=== PATIENT | female | born 1960 | race Caucasian/White ===

== ENCOUNTER 2022-06-28 13:16 | Outpatient (CLI) | payer BC | END 2022-06-28 13:17 | disposition home or self-care (01) | LOC: BICMAMMO 13:16 | PROVIDERS: ATTEND Registered Nurse | DX: N64.4 Mastodynia (principal) | CPT/HCPCS: 77066; G0279 ==

== ENCOUNTER 2023-08-08 20:59 | Observation (INO) | payer BC ==
[2023-08-09] MEDS ORDERED: Senokot S 8.6-50 MG TAB PO PRN (00:16)
[2023-08-09] MEDS ORDERED: Acetaminophen 325 MG TAB PO PRN (00:16)
[2023-08-09] MEDS: Dexamethasone 4 mg/ml Vial SLOW IVP SCH (01:39)
[2023-08-09] MEDS: clonazePAM 0.5 MG TAB PO PRN (01:39)
[2023-08-09] MEDS: tiZANidine HCl 4 MG TAB PO SCH (02:17)
[2023-08-09 05:10] LABS: #Eosinphils 0.1 thou/uL (0.0-0.7); #Monocytes 0.3 thou/uL (0.11-0.59); #Neutrophils 6.2 thou/uL (1.40-6.50); %Basophils 0.5 % (0.0-1.0); %Eosinophils 1.2 % (0.0-10.0); %Lymphocytes 13.2 % (21.0-51.0); %Monocytes 4.2 % (0.0-10.0); %Neutrophils 80.4 % (42.0-75.0); Hematocrit 42.6 % (36.0-47.0); Hemoglobin 13.5 g/dL (12.0-16.0); Mean Corpuscular HGB CONC 31.7 g/dL (32.0-36.0); Mean Corpuscular Hemoglobin 28.7 pg (27.0-31.0); Mean Corpuscular Volume 90.4 fl (78.0-98.0); Mean Platelet Volume 11.5 fL (7.4-10.4); Platelet Count 363 10x3/uL (130-400); RBC Distribution Width 14.1 % (11.5-14.5); Red Blood Cell (RBC) Count 4.71 mill/uL (4.20-5.40); White Blood Cell (WBC) Count 7.7 10x3/uL (4.8-10.8)
[2023-08-09 05:39] LABS: ALT (SGPT) 12 U/L (8-55); AST (SGOT) 17 U/L (5-34); Alkaline Phosphatase 76 U/L (40-110); Anion Gap 18 mmol/L (10-20); BUN (Urea Nitrogen) 19 mg/dL (9.8-20.1); Bilirubin, Total 0.3 mg/dL (0.2-1.2); Calc. Creatinine Clearance 54 mL/min (70-130); Calcium 9.9 mg/dL (7.8-10.44); Carbon Dioxide 18 mmol/L (23-31); Chloride 106 mmol/L (98-107); Estimated GFR 36; Glucose 139 mg/dL (80-115); Potassium 4.2 mmol/L (3.5-5.1); Sodium 138 mmol/L (136-145)
[2023-08-09] MEDS ORDERED: Cyclobenzaprine 10 MG TAB PO PRN (08:47)
[2023-08-09] MEDS ORDERED: Famotidine 20 MG TAB PO SCH (09:00)
[2023-08-09] MEDS: Gabapentin 300 MG CAP PO SCH (09:32)
[2023-08-09] MEDS: Ondansetron ODT 4 MG TAB PO PRN (09:32)
[2023-08-09] MEDS: Amlodipine 10 MG TAB PO SCH (09:33)
[2023-08-09] MEDS: Citalopram 20 MG TAB PO SCH (09:33)
[2023-08-09] MEDS: Spironolactone 25 MG TAB PO SCH (09:33)
[2023-08-09] MEDS: Clopidogrel Bisulfate 75 MG TAB PO SCH (09:34)
[2023-08-09] MEDS: Losartan 25 MG TAB PO SCH (09:35)
[2023-08-09] MEDS ORDERED: Ondansetron PF 4 MG/2 ML Vial IVP PRN (11:03)
[2023-08-09] MEDS ORDERED: Ondansetron ODT 4 MG TAB PO PRN (11:03)
[2023-08-09] MEDS: fentaNYL 50 mcg/mL 1 mL Vial SLOW IVP SCH ×2 (12:22→20:29)
[2023-08-09] MEDS: Ondansetron PF 4 MG/2 ML Vial IVP PRN (12:22)
[2023-08-09] MEDS: Sodium Chloride 0.9% 1,000 ML IV SCH (14:21)
[2023-08-09] MEDS: HYDROcodone/Acetaminophen 5/325 mg Tablet PO PRN (14:52)
[2023-08-09] MEDS: Sucralfate 1 GM TAB PO SCH (17:55)
[2023-08-09] MEDS: Calcium Carbonate 600 MG + Vit D TAB PO SCH (18:20)
[2023-08-09] MEDS: Senokot S 8.6-50 MG TAB PO SCH (20:29)
[2023-08-09] MEDS: cloNIDine 0.1 MG TAB PO PRN (20:30)
[2023-08-09] MEDS: Lidocaine 4% Patch TD SCH (20:30)
[2023-08-09] MEDS: tiZANidine HCl 4 MG TAB PO PRN (20:30)
[2023-08-09] MEDS: Cyanocobalamin (Vitamin B-12) 1,000 MCG TAB PO SCH (20:55)
[2023-08-10] MEDS: Sucralfate 1 GM TAB PO SCH (04:11)
[2023-08-10 04:23] LABS: #Eosinphils 0.1 thou/uL (0.0-0.7); #Monocytes 0.8 thou/uL (0.11-0.59); #Neutrophils 4.8 thou/uL (1.40-6.50); %Basophils 0.4 % (0.0-1.0); %Eosinophils 0.9 % (0.0-10.0); %Lymphocytes 28.3 % (21.0-51.0); %Monocytes 9.8 % (0.0-10.0); %Neutrophils 60.3 % (42.0-75.0); Hematocrit 39.1 % (36.0-47.0); Hemoglobin 12.6 g/dL (12.0-16.0); Mean Corpuscular HGB CONC 32.2 g/dL (32.0-36.0); Mean Corpuscular Volume 90.1 fl (78.0-98.0); Mean Platelet Volume 10.1 fL (7.4-10.4); Platelet Count 269 10x3/uL (130-400); RBC Distribution Width 14.1 % (11.5-14.5); Red Blood Cell (RBC) Count 4.34 mill/uL (4.20-5.40); White Blood Cell (WBC) Count 7.9 10x3/uL (4.8-10.8)
[2023-08-10 04:52] LABS: Anion Gap 12 mmol/L (10-20); BUN (Urea Nitrogen) 16 mg/dL (9.8-20.1); Calc. Creatinine Clearance 86 mL/min (70-130); Calcium 9.4 mg/dL (7.8-10.44); Carbon Dioxide 20 mmol/L (23-31); Chloride 109 mmol/L (98-107); Estimated GFR 63; Glucose 106 mg/dL (80-115); Magnesium 2.2 mg/dL (1.6-2.6); Potassium 3.4 mmol/L (3.5-5.1); Sodium 138 mmol/L (136-145)
[2023-08-10] MEDS ORDERED: Acetaminophen 500 MG TAB PO PRN (07:45)
[2023-08-10 07:59] VITALS: TEMP 98.2
[2023-08-10] MEDS: Promethazine 25 MG TAB PO PRN (08:29)
[2023-08-10] MEDS: oxyCODONE 5 MG TAB PO PRN (08:54)
[2023-08-10] MEDS: Transdermal Patch Removal TOP SCH (08:57)
[2023-08-10] MEDS ORDERED: Lidocaine 4% Patch TD SCH (09:00)
[2023-08-10] MEDS: Potassium Chloride 20 MEQ TAB PO SCH (11:46)
[2023-08-10 12:41] VITALS: BP 102/70
[2023-08-10] MEDS: Acetaminophen 500 MG TAB PO SCH (16:23)
[2023-08-12] MEDS ORDERED: FLU VACC QS2023-24(6MOS UP)/PF 60 MCG/0.5 ML SYRINGE IM ONE (09:00)
== END 2023-08-10 17:25 | disposition home or self-care (01) ==
LOC: 2SE 20:59
PROVIDERS: ADMIT Student in an Organized Health Care Education/Training Program; ATTEND Internal Medicine
DX: M47.816 Spondylosis without myelopathy or radiculopathy, lumbar region (principal); M48.061 Spinal stenosis, lumbar region without neurogenic claudication; M48.07 Spinal stenosis, lumbosacral region; M70.62 Trochanteric bursitis, left hip; M70.61 Trochanteric bursitis, right hip; F41.9 Anxiety disorder, unspecified; I10 Essential (primary) hypertension; F32.A Depression, unspecified; G89.29 Other chronic pain; E78.5 Hyperlipidemia, unspecified; N17.9 Acute kidney failure, unspecified; I12.9 Hypertensive chronic kidney disease with stage 1 through stage 4 chronic kidney disease, or unspecified chronic kidney disease; N18.2 Chronic kidney disease, stage 2 (mild); E66.9 Obesity, unspecified; Z68.38 Body mass index [BMI] 38.0-38.9, adult; Z88.5 Allergy status to narcotic agent; Z88.8 Allergy status to other drugs, medicaments and biological substances; Z90.710 Acquired absence of both cervix and uterus; Z79.82 Long term (current) use of aspirin; Z79.899 Other long term (current) drug therapy
CPT/HCPCS: 36415; 72148; 80048; 80053; 83735; 85025; 96374; 96375; 96376; G0378; J1100; J2405; J3010; J7050; Q0162; Q0169

== ENCOUNTER 2024-05-15 16:26 | Inpatient (IN) | payer BC, SELFPAY ==
[~2024-05-15 16:26] MED LIST: Iopamidol-370 76% 500 ML MDV (1 ML CHARGE) ONE
[2024-05-15] MEDS ORDERED: Ondansetron PF 4 MG/2 ML Vial ONE ×2 (17:13→19:42)
[2024-05-15] MEDS ORDERED: Morphine 2 MG/ML VIAL ONE ×2 (17:13→19:42)
[2024-05-15 17:32] LABS: #Basophils 0.04 10x3/uL (0.0-0.2); %Basophils 0.7 % (0.0-1.0); %Eosinophils 2.7 % (0.0-10.0); %Lymphocytes 28.6 % (21.0-51.0); %Monocytes 8.5 % (0.0-10.0); %Neutrophils 59.3 % (42.0-75.0); Hematocrit 41.1 % (36.0-47.0); Hemoglobin 13.1 g/dL (12.0-16.0); Mean Corpuscular HGB CONC 31.9 g/dL (32.0-36.0); Mean Corpuscular Hemoglobin 28.2 pg (27.0-31.0); Mean Corpuscular Volume 88.6 fL (78.0-98.0); Mean Platelet Volume 10.3 fL (7.4-10.4); Platelet Count 258 10x3/uL (130-400); RBC Distribution Width 14.4 % (11.5-14.5); Red Blood Cell (RBC) Count 4.64 mill/uL (4.20-5.40)
[2024-05-15 17:40] LABS: ALT (SGPT) 13 U/L (8-55); AST (SGOT) 16 U/L (5-34); Albumin 3.7 g/dL (3.4-4.8); Alkaline Phosphatase 60 U/L (40-110); Anion Gap 13 mmol/L (10-20); BUN (Urea Nitrogen) 12 mg/dL (9.8-20.1); Bilirubin, Total 0.3 mg/dL (0.2-1.2); Calc. Creatinine Clearance 0 mL/min (70-130); Calcium 9.4 mg/dL (7.8-10.44); Carbon Dioxide 21 mmol/L (23-31); Chloride 111 mmol/L (98-107); Estimated GFR 90; Globulin 2.8 g/dL (2.4-3.5); Glucose 93 mg/dL (80-115); Potassium 3.9 mmol/L (3.5-5.1); Protein, Total 6.5 g/dL (5.8-8.1); Sodium 141 mmol/L (136-145)
[2024-05-15 17:44] LABS: Troponin I Less than 0.010 ng/mL (< 0.028)
[2024-05-15] MEDS ORDERED: Acetaminophen 325 MG TAB PO PRN (18:41)
[2024-05-15] MEDS ORDERED: Calcium Carbonate 500 MG ChewTAB PO PRN (18:41)
[2024-05-15] MEDS ORDERED: Senokot S 8.6-50 MG TAB PO PRN (18:41)
[2024-05-15] MEDS ORDERED: Acetaminophen 500 MG TAB ONE (19:40)
[2024-05-15 21:24] LABS: Troponin I Less than 0.010 ng/mL (< 0.028)
[2024-05-15] MEDS: Gabapentin 300 MG CAP PO SCH (22:23)
[2024-05-15] MEDS: clonazePAM 1 MG TAB PO SCH (22:24)
[2024-05-15 22:31] VITALS: BMI 35.6
[2024-05-16 01:46] LABS: Troponin I Less than 0.010 ng/mL (< 0.028)
[2024-05-16 04:49] LABS: #Basophils 0.05 10x3/uL (0.0-0.2); %Basophils 1.1 % (0.0-1.0); %Eosinophils 5.2 % (0.0-10.0); %Monocytes 12.2 % (0.0-10.0); %Neutrophils 39.5 % (42.0-75.0); Hematocrit 40.2 % (36.0-47.0); Hemoglobin 12.5 g/dL (12.0-16.0); Mean Corpuscular HGB CONC 31.1 g/dL (32.0-36.0); Mean Corpuscular Hemoglobin 28.3 pg (27.0-31.0); Platelet Count 258 10x3/uL (130-400); RBC Distribution Width 14.6 % (11.5-14.5); Red Blood Cell (RBC) Count 4.42 mill/uL (4.20-5.40)
[2024-05-16] MEDS: Morphine 2 MG/ML VIAL SLOW IVP PRN (04:50)
[2024-05-16 05:06] LABS: Hemoglobin A1c 5.3 % (4.0-6.0)
[2024-05-16 05:07] LABS: ALT (SGPT) 12 U/L (8-55); AST (SGOT) 14 U/L (5-34); Albumin 3.6 g/dL (3.4-4.8); Alkaline Phosphatase 58 U/L (40-110); Anion Gap 11 mmol/L (10-20); BUN (Urea Nitrogen) 14 mg/dL (9.8-20.1); Bilirubin, Total 0.2 mg/dL (0.2-1.2); Calc. Creatinine Clearance 88 mL/min (70-130); Calcium 9.4 mg/dL (7.8-10.44); Carbon Dioxide 28 mmol/L (23-31); Cardiac Risk 3.1 (Less than 4.5); Chloride 107 mmol/L (98-107); Cholesterol 154 mg/dl (< 200 Desired); Estimated GFR 68; Globulin 2.6 g/dL (2.4-3.5); Glucose 100 mg/dL (80-115); HDL Cholesterol 50 mg/dL (>60 Neg Risk); LDL Cholesterol, Calculated 87 mg/dL; Potassium 3.7 mmol/L (3.5-5.1); Protein, Total 6.2 g/dL (5.8-8.1); Sodium 142 mmol/L (136-145); Triglycerides 86 mg/dL (Less than 150)
[2024-05-16] MEDS: Enoxaparin 40 MG (0.4 mL) SYRINGE SC SCH (09:10)
[2024-05-16] MEDS: clonazePAM 0.5 MG TAB PO SCH (09:10)
[2024-05-16] MEDS: Clopidogrel Bisulfate 75 MG TAB PO SCH (09:10)
[2024-05-16] MEDS: Citalopram 20 MG TAB PO SCH (09:10)
[2024-05-16] MEDS: Aspirin Chewable 81 MG TAB PO SCH (09:10)
[2024-05-16] MEDS: Ondansetron PF 4 MG/2 ML Vial IVP PRN (09:18)
[2024-05-16] MEDS: HYDROcodone/Acetaminophen 7.5/325 mg Tablet PO PRN (10:20)
[2024-05-16] MEDS: Metoclopramide HCl 10 MG (2 mL) VIAL IVP PRN (10:26)
[2024-05-16] MEDS ORDERED: Regadenoson 0.4 MG/5 ML SYRINGE ONE (10:44)
[2024-05-16] MEDS: Amlodipine 10 MG TAB PO SCH (13:45)
[2024-05-16] MEDS: Spironolactone 25 MG TAB PO SCH (13:46)
[2024-05-16] MEDS: Losartan 25 MG TAB PO SCH (13:46)
[2024-05-16] MEDS: Sodium Chloride 0.9% 500 ML IV SCH (17:27)
[2024-05-17] MEDS: tiZANidine HCl 4 MG TAB PO PRN (00:37)
[2024-05-17] MEDS: traMADol HCl 50 MG TAB PO SCH (03:43)
[2024-05-17] MEDS: Triamcinolone 40 MG/ML VIAL I-ARTICULR SCH (09:00)
[2024-05-17] MEDS: Lidocaine 1% (PF) 30 ML VIAL SC SCH (09:08)
[2024-05-17] MEDS: Lidocaine 1% (PF) 30 ML VIAL ONE (09:14)
[2024-05-17 15:44] VITALS: BP 96/53; TEMP 98.7
[2024-05-18] MEDS ORDERED: FLU (Fluarix Triv) TS24-25(6MOS UP)/PF 45 MCG/0.5 ML Syringe IM ONE (09:00)
== END 2024-05-17 17:42 | disposition home or self-care (01) | DRG 313 ==
LOC: ERS 16:26 → SUATTDRO 16:26 → OBS 18:32 → OBSVTOIN 05-16 14:32
PROVIDERS: ADMIT Internal Medicine; ATTEND Internal Medicine
PROC: 3E0U33Z Introduction of Anti-inflammatory into Joints, Percutaneous Approach (ICD-10-PCS; principal; 2024-05-17)
DX: R07.89 Other chest pain (principal); F41.9 Anxiety disorder, unspecified; F32.A Depression, unspecified; E78.5 Hyperlipidemia, unspecified; I10 Essential (primary) hypertension; Z88.8 Allergy status to other drugs, medicaments and biological substances; I25.10 Atherosclerotic heart disease of native coronary artery without angina pectoris; I77.9 Disorder of arteries and arterioles, unspecified; F39 Unspecified mood [affective] disorder; Z79.82 Long term (current) use of aspirin; Z79.899 Other long term (current) drug therapy; M25.561 Pain in right knee; M19.90 Unspecified osteoarthritis, unspecified site; Z90.710 Acquired absence of both cervix and uterus; Z98.890 Other specified postprocedural states
CPT/HCPCS: 36415; 71045; 71275; 74174; 78452; 80053; 80061; 83036; 83880; 84484; 85025; 93005; 93017; 94760; 96372; 96374; 96375; 96376; A9502; G0378; J1650; J2272; J2405; J2765; J2785; J3301; Q9967